=== PATIENT | male | born 1985 | race Two or more races ===

== ENCOUNTER → 2018-11-01 | Day surgery (SDC) | payer OTHER ==
[~2018-11-01] MED LIST: IV RINGERS,LACTATED 1000ML 1,000 ML IV SCH; MEPERIDINE PF 25 MG/ML VIAL. IV ONE; MEPERIDINE PF 25 MG/ML VIAL. ONE; MIDAZOLAM HCL/PF 5 MG/5 ML VIAL. IV ONE; MIDAZOLAM HCL/PF 5 MG/5 ML VIAL. ONE; diphenhydrAMINE 50 MG/ML VIAL IV ONE; diphenhydrAMINE 50 MG/ML VIAL ONE
[2018-11-01 17:44] VITALS: BP 117/68
== END ==
LOC: SURG 14:32
PROVIDERS: ATTEND Internal Medicine Gastroenterology
DX: K64.0 First degree hemorrhoids (principal); K63.89 Other specified diseases of intestine; Z72.89 Other problems related to lifestyle
CPT/HCPCS: 45378; J1200; J2175; J2250; 99152; G0500